=== PATIENT | male | born 1970 | race Caucasian/White ===

== ENCOUNTER 2017-04-17 12:18 | Emergency (ER) | payer MEDICAID ==
[~2017-04-17] VITALS: Ht 188 cm; Wt 109.0 kg
[~2017-04-17 12:18] MED LIST: ALBU6.7H INH; GUAI120015 PO; NO HOME MEDS; PANT40TA39 PO
[2017-04-17 12:28] VITALS: BP 150/119
[2017-04-17] MEDS ORDERED: SULF1TAB49 PO (13:22)
[2017-04-17] MEDS ORDERED: LIDOcaine 1.5% w/epinephrine 1:200,000 5ml ampul IJ ONE (13:25)
== END 2017-04-17 13:59 | disposition home or self-care (01) ==
LOC: ER 12:19
DX: L02.415 Cutaneous abscess of right lower limb (principal); E78.00 Pure hypercholesterolemia, unspecified; Z86.14 Personal history of Methicillin resistant Staphylococcus aureus infection
CPT/HCPCS: 10060; 87070; 87077; 87186; 99284; A6449; J3490

== ENCOUNTER 2017-10-25 09:03 | Emergency (ER) | payer MEDICAID ==
[~2017-10-25] VITALS: Ht 188 cm; Wt 109.0 kg
[2017-10-25 09:40] LABS: BASOPHILS # (AUTO) 0.1 X10'3 (0-0.2); BASOPHILS % (AUTO) 0.8 % (0-1); EOSINOPHILS # (AUTO) 0.2 X10'3 (0-0.9); EOSINOPHILS % (AUTO) 2.5 % (0-6); HEMATOCRIT 42.7 % (42.0-52.0); HEMOGLOBIN 15.2 g/dl (14.0-17.9); LYMPHOCYTES # (AUTO) 1.7 X10'3 (1.1-4.8); MEAN CORPUSCULAR HEMOGLOBIN 32.7 PG (27.0-31.0); MEAN CORPUSCULAR HGB CONC 35.5 % (33.0-36.5); MEAN CORPUSCULAR VOLUME 92.1 FL (78-98); MEAN PLATELET VOLUME 7.7 FL (7.4-10.4); MONOCYTES # (AUTO) 0.5 X10'3 (0-0.9); MONOCYTES % (AUTO) 8.3 % (2-12); NEUTROPHILS % (AUTO) 62.4 % (42-75); PLATELET COUNT 189 X10'3 (140-440); RED BLOOD COUNT 4.64 X10'6 (4.70-6.10); RED CELL DISTRIBUTION WIDTH 13.9 % (11.5-14.5); WHITE BLOOD COUNT 6.4 X10'3 (4.5-11.0)
[2017-10-25 09:48] LABS: INR 0.9 INR; PARTIAL THROMBOPLASTIN TIME 25 SECONDS (22-32); PROTHROMBIN TIME 9.8 SECONDS (9.0-12.0)
[2017-10-25 09:59] LABS: ALBUMIN 3.4 G/DL (3.4-5.0); ALKALINE PHOSPHATASE 118 IU/L (46-116); ANION GAP 9 (8-16); BILIRUBIN,TOTAL 0.4 MG/DL (0.1-1.0); BLOOD UREA NITROGEN 15 MG/DL (7-18); BUN/CREATININE RATIO 13.3 (5.4-32.0); CHLORIDE 105 MMOL/L (99-107); CREATININE 1.13 MG/DL (0.60-1.10); SODIUM 140 MMOL/L (135-145); TOTAL CARBON DIOXIDE 26.3 MMOL/L (24-32); TOTAL PROTEIN 6.8 G/DL (6.4-8.2); eGFR 69 ML/MIN
[2017-10-25 10:12] LABS: ALANINE AMINOTRANSFERASE 16 U/L (12-78); ASPARTATE AMINO TRANSFERASE 9 U/L (10-37); GLUCOSE 133 MG/DL (70-104); POTASSIUM 3.4 MMOL/L (3.5-5.1)
[2017-10-25 12:24] VITALS: BP 140/88
== END 2017-10-25 12:26 | disposition home or self-care (01) ==
LOC: ER 09:05
DX: R60.0 Localized edema (principal); F17.200 Nicotine dependence, unspecified, uncomplicated; E78.00 Pure hypercholesterolemia, unspecified; I10 Essential (primary) hypertension; Z86.14 Personal history of Methicillin resistant Staphylococcus aureus infection; Z79.899 Other long term (current) drug therapy
CPT/HCPCS: 36415; 71045; 80053; 83880; 84484; 85025; 85610; 85730; 93005; 99285

== ENCOUNTER 2017-12-17 08:07 | Emergency (ER) | payer MEDICAID ==
[~2017-12-17] VITALS: Ht 188 cm; Wt 109.1 kg
[2017-12-17 10:08] VITALS: BP 85/51
[2017-12-17] MEDS ORDERED: GABA-530 PO (10:24)
== END 2017-12-17 10:42 | disposition home or self-care (01) ==
LOC: ER 08:07
DX: M79.2 Neuralgia and neuritis, unspecified (principal); R60.9 Edema, unspecified; I10 Essential (primary) hypertension; E78.00 Pure hypercholesterolemia, unspecified
CPT/HCPCS: 93971; 99284

== ENCOUNTER 2018-01-14 04:09 | Emergency (ER) | payer MEDICAID ==
[~2018-01-14] VITALS: Ht 188 cm; Wt 83.0 kg
[~2018-01-14 04:09] MED LIST changes: +GABA-530 PO
[2018-01-14 04:17] VITALS: BP 149/109
== END 2018-01-14 04:51 | disposition left against medical advice (07) ==
LOC: ER 04:09
DX: Z00.8 Encounter for other general examination (principal); E78.00 Pure hypercholesterolemia, unspecified; I10 Essential (primary) hypertension; Z86.14 Personal history of Methicillin resistant Staphylococcus aureus infection; Z79.899 Other long term (current) drug therapy
CPT/HCPCS: 99281